=== PATIENT | female | born 1965 | race Hispanic/Latino ===

== ENCOUNTER → 2017-12-01 | Outpatient (CLI) | payer OTHER | LOC: RAD 09:49 | PROVIDERS: ATTEND Internal Medicine | DX: R60.9 Edema, unspecified (principal) | CPT/HCPCS: 93970 ==

== ENCOUNTER 2018-08-05 23:19 | Inpatient (IN) | payer OTHER ==
[~2018-08-05] VITALS: Ht 165.1 cm; Wt 99.8 kg
--- OUTSIDE RECORDS SUMMARY | 2018-08-05 23:24 | XMS REPORT ---
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 Allergies, Adverse Reactions, Alerts This patient has no known allergies or adverse reactions. Medications This patient has no known medications. Results Test Description Test Time Test Comments Text Results Atomic Results Result Comments CHEST 2 VIEWS [place] [address] Patient Name: PADMINI GUTIÉRREZ MR #: [id number] : 1965 Age/Sex: 51/F Req #: [id number] Adm Physician: Ordered by: ELMA PATEL DPM Report #: [id number] Location: OR Room/Bed: Procedure: [id number] DX/CHEST 2 VIEWS Exam Date: 01/19/17 Exam Time: 1300 REPORT STATUS: Signed PROCEDURE: Frontal and lateral views of the chest. COMPARISON: None. INDICATIONS: PRE OPERATIVE CHEST X-RAY FOR FOOT SURGERY FINDINGS: Lines/tubes: None. Lungs: The lungs are well inflated and clear. There is no evidence of pneumonia or pulmonary edema. Pleura: There is no pleural effusion or pneumothorax. Heart and mediastinum: The heart and the mediastinum are normal. Bones: No acute bony abnormality. IMPRESSION: No acute cardiopulmonary disease. Dictated by: Armando Cuenca M.D. on 01/19/2017 at 13:31 Electronically approved by: Armando Cuenca M.D. on 01/19/2017 at 13:31 Dictated By: ARMANDO CUENCA MD [id number] Transcribed By: RITA on 01/19/17 1331 COPY TO: ELMA PATEL DPM
[2018-08-05 23:38] LABS: BASOPHILS # (AUTO) 0.1 (0.0-0.1); BASOPHILS % 0.5 % (0.0-1.0); EOSINOPHILS # (AUTO) 0.1 (0.0-0.4); EOSINOPHILS % 0.8 % (0.0-6.0); HEMATOCRIT 39.2 % (34.2-44.1); LYMPHOCYTES # (AUTO) 2.3 (1.0-3.2); LYMPHOCYTES % 21.9 % (18.0-39.1); MEAN CORPUSCULAR HEMOGLOBIN 30.4 pg (28-32); MEAN CORPUSCULAR HGB CONC 33.2 g/dL (31-35); MEAN CORPUSCULAR VOLUME 91.6 fL (81-99); MONOCYTES # (AUTO) 0.8 (0.2-0.8); NEUTROPHILS % 67.3 % (38.7-80.0); PLATELET COUNT 183 x10e3/uL (140-360); RED BLOOD COUNT 4.28 x10e6/uL (3.6-5.1); RED CELL DISTRIBUTION WIDTH 13.2 % (11.7-14.4)
[2018-08-05 23:43] LABS: INR 0.81; PROTHROMBIN TIME 11.6 seconds (11.9-14.5)
[2018-08-06 00:05] LABS: ALBUMIN 2.9 g/dL (3.5-5.0); ALBUMIN/GLOBULIN RATIO 0.9 (0.8-2.0); ANION GAP 14.9 mmol/L (8-16); CREATININE, SERUM 1.05 mg/dL (0.57-1.11); MAGNESIUM 1.7 MG/DL (1.3-2.1); POTASSIUM 3.9 mmol/L (3.5-5.1)
[2018-08-06 00:11] LABS: CREATINE KINASE MB 1.3 ng/mL (0-5.0)
--- NOTE | 2018-08-06 00:13 | Diagnostic Imaging Report ---
EXAMINATION: PA and lateral views of the chest. COMPARISON: Chest two views 01/19/2017 CLINICAL HISTORY: Chest pain DISCUSSION: Lines/tubes: None. Lungs: The lungs are well inflated and clear. There is no evidence of pneumonia or pulmonary edema. Pleura: There is no pleural effusion or pneumothorax. Heart and mediastinum: Cardiomediastinal silhouette is unremarkable. Pulmonary vasculature is normal. Bones and soft tissues: No acute bony abnormalities. IMPRESSION: No acute cardiopulmonary abnormalities. Signed by: Dr. Magan Freedman M.D. on 08/06/2018 12:09 AM
[2018-08-06] MEDS ORDERED: ONDANSETRON HCL INJ 2MG/ML 2ML 2 MG/ML VIAL IV STA (00:22)
[2018-08-06] MEDS ORDERED: SODIUM CHLORIDE 0.9% 1000ML 1,000 ML IV STA (00:22)
[2018-08-06] MEDS ORDERED: NITROGLYCERIN 2% OINT 1 GM PKT TOP ONE (00:30)
[2018-08-06] MEDS ORDERED: MORPHINE SULFATE INJ 4 MG/ML INJ 1ML IV ONE (00:30)
[2018-08-06 00:39] LABS: CLARITY,URINE CLEAR (CLEAR); COLOR,URINE YELLOW (YELLOW)
[2018-08-06 00:40] LABS: BILIRUBIN,URINE NEGATIVE (NEGATIVE); KETONES,URINE NEGATIVE (NEGATIVE); LEUKOCYTE ESTERASE ,URINE NEGATIVE (NEGATIVE); NITRITE,URINE NEGATIVE (NEGATIVE); PROTEIN,URINE DIPSTICK NEGATIVE (NEGATIVE); URINE UROBILINOGEN 0.2 mg/dL (0.2 - 1)
[2018-08-06 00:44] LABS: PARTIAL THROMBOPLASTIN TIME 20.6 seconds (23.8-35.5)
[2018-08-06] MEDS ORDERED: INSULIN REGULAR, HUMAN 100 UNIT/1 ML 3ML VIAL IV ONE (00:45)
--- NOTE | 2018-08-06 01:03 | Diagnostic Imaging Report ---
CT BRAIN WO HISTORY: Headache COMPARISON: None. TECHNIQUE: Noncontrast axial scans were obtained from skull base to the vertex. Coronal and sagittal reconstructions obtained from the axial data. One or more of the following dose reduction techniques were used: Automated exposure control, adjustment of the mA and/or kV according to patient size, and/or utilization of iterative reconstruction technique. DISCUSSION: Scalp/Skull: Focal area of nonaggressive osseous scalloping at the left sphenoid triangle measures up to 1.4 cm in craniocaudal dimension and contains internal fat density; this may be a lipoma. Brain sulci: Appropriate for patient's age. Ventricles: Normal in size and configuration. No hydrocephalus. Extra-axial spaces: No masses or fluid collections. Carotid siphon calcifications are present. Parenchyma: Mild periventricular white matter hypodensities are likely chronic microvascular ischemic changes. Otherwise, no mass, hemorrhage, or large vascular territory acute infarct. Dural sinuses: No abnormal densities. Sellar/Suprasellar region: Intact. Skull base: Intact. Incidental findings: None. IMPRESSION: 1. No acute intracranial abnormalities. 2. Mild supratentorial chronic microvascular ischemic change. Signed by: Dr. Gabriele Cardenas M.D. on 08/06/2018 12:59 AM
[2018-08-06 01:19] LABS: BACTERIA,URINE MODERATE /HPF; EPITHELIAL CELLS,URINE FEW /LPF; RBC,URINE 0-5 /HPF (0-5); WBC,URINE (MAN) 0-5 /HPF (0-5)
[2018-08-06 01:20] LABS: HYALINE CASTS 0-1 (0-1); YEAST,URINE FEW
[2018-08-06] MEDS ORDERED: CLONIDINE HCL0.2 MG PO (01:25)
[2018-08-06] MEDS ORDERED: GLIMEPIRIDE2 MG PO (01:25)
[2018-08-06] MEDS ORDERED: LISINOPRIL20 MG PO (01:25)
[2018-08-06] MEDS ORDERED: FAMOTIDINE 20 MG/2 ML VIAL IV SCH (01:30)
[2018-08-06] MEDS ORDERED: DEXTROSE 50% SYRINGE 50 ML IV PRN (01:30)
[2018-08-06] MEDS ORDERED: NITROGLYCERIN 0.4 MG SUBL SL PRN (01:30)
[2018-08-06] MEDS ORDERED: SODIUM CHLORIDE 0.9% 1000ML 1,000 ML ONE (04:11)
[2018-08-06] MEDS: SODIUM CHLORIDE 0.9% 1000ML 1,000 ML IV SCH ×3 (04:45→21:00)
[2018-08-06] MEDS: ONDANSETRON HCL INJ 2MG/ML 2ML 2 MG/ML VIAL IV PRN (05:21)
--- NOTE | 2018-08-06 07:21 | History and Physical ---
REASON FOR ADMISSION: 1. Chest pain, rule out DC. 2. Hypertensive urgency. 3. Diabetes. HISTORY OF PRESENT ILLNESS: The patient is a 52-year-old female with history of hypertension, recent diagnosis of diabetes, who presented to the emergency room with her 1st acute onset of chest pain and felt like somebody squeezing her chest and radiated to the left shoulder, was associated with diaphoresis and shortness of breath. She became chest pain-free in the emergency room where she is currently still chest-pain free. She was also noticeable for hypertensive urgency with systolic blood pressure around 220, but currently is now normal. REVIEW OF SYSTEMS: She is also complaining of significant headache, which was also . PAST MEDICAL HISTORY: Diabetes, hypertension. MEDICATIONS: See JUL. ALLERGIES: SEE JUL. SOCIAL HISTORY: Lives at home with her . Nonsmoker, nondrinker. FAMILY HISTORY: Hypertension. PHYSICAL EXAMINATION: VITAL SIGNS: Temperature is 98.6, blood pressure 132/70, pulse 74, sats 98% on room air. GENERAL: She is in no apparent distress, lying in bed. NECK: Supple. No lymphadenopathy. No JVD. CARDIOVASCULAR: Regular rate and rhythm. LUNGS: Clear to auscultation bilaterally. ABDOMEN: Good bowel sounds. Soft, nontender. EXTREMITIES: No clubbing or cyanosis. NEUROLOGIC: Nonfocal. ASSESSMENT/PLAN: 1. Chest pain. We will rule out DC and consult Cardiology, most likely will need a stress test. 2. Hypertensive urgency. This appears to be resolved at the time. She will continue to monitor her blood pressure. 3. Diabetes. Continue the current care and monitoring . 4. Hyponatremia most likely secondary to her hyperosmolar syndrome from her diabetes. We will continue with IV fluids. 5. Hyperosmolar syndrome. We will continue with getting the sugar down. Please see hospital chart for full details. MD MILI Paul/MODL /[id number]
[2018-08-06] MEDS: INSULIN LISPRO 100 UNIT/1 ML 3ML VIAL SQ SCH ×4 (08:10→22:47)
[2018-08-06 08:34] LABS: CREATINE KINASE MB 1.4 ng/mL (0-5.0)
[2018-08-06] MEDS: METOPROLOL TARTRATE 25 MG TAB PO SCH ×2 (09:09→21:00)
[2018-08-06] MEDS: LISINOPRIL 20 MG TAB PO SCH ×2 (09:17→21:00)
[2018-08-06] MEDS: ASPIRIN 81 MG ENTERIC COATED PO SCH (09:17)
[2018-08-06] MEDS: FAMOTIDINE 20 MG/2 ML VIAL IV SCH ×2 (09:17→21:33)
--- NOTE | 2018-08-06 10:30 | NUR ---
Dr. Debbie Oliver rounding at this time. States to keep pt NPO & hold insulin until after stress test.
--- NOTE | 2018-08-06 11:00 | NUR ---
Echo at bedside.
--- NOTE | 2018-08-06 11:11 | NUR ---
Walking rounds with Martinez Decker RN. Denies complaints at this time.
[2018-08-06] MEDS ORDERED: REGADENOSON 0.4 MG/5 ML SYR IV ONE (12:38)
[2018-08-06 16:22] LABS: CREATINE KINASE MB 1.4 ng/mL (0-5.0)
--- NOTE | 2018-08-06 16:27 | NUR ---
Call placed to Dr. Brock's office regarding pt's request to be taken off NPO status.
--- NOTE | 2018-08-06 17:21 | NUR ---
Dr. Brock called back and stated the pt can be removed from NPO status.
[2018-08-06 21:00] VITALS: BP 150/74
[2018-08-06] MEDS ORDERED: ACETAMINOPHEN 325 MG TAB PO PRN (21:00)
--- NOTE | 2018-08-06 23:00 | NUR ---
PT IS TRANSFERRED FROM ER AOX3 .RESPIRATIONS ARE EVEN AND UNLABORED .SKIN WARM AND DRY TO TOUCH .PT DENIES CEST PAIN PT HAS IV AT RT AC 18G .FAMILY AT THE BEDSIDE .PHYSICAL ASSESSMENT DONE .ORIENTED TO THE ENVIRONMENT.CALL LIGHT WITH IN REACH
[2018-08-07] VITALS (8 sets, daily range): BP systolic 127–175; BP diastolic 71–83
[2018-08-07] MEDS: SODIUM CHLORIDE 0.9% 1000ML 1,000 ML IV SCH ×3 (01:45→11:23)
[2018-08-07] MEDS: ONDANSETRON HCL INJ 2MG/ML 2ML 2 MG/ML VIAL IV PRN (02:49)
--- NOTE | 2018-08-07 04:49 | NUR ---
PT C/O HEADACHE .CALLED DR JIANG AND GOT THE ORDER TO GIVE TYLENOL .GIVEN TYLENOL PT SAID THE HEADACHE IS GONE .PT C/O FO IV AND STARTED NEW IV AT RT HAND .CALL LIGHT WITH IN REACH .CONTINUE TO MONITOR
--- NOTE | 2018-08-07 04:52 | NUR ---
PT HAD NAUSEA AND VOMITING .GIVEN ZOFRAN AND CONTINUE TO MONITOR
--- NOTE | 2018-08-07 05:35 | Consultation ---
DATE OF CONSULTATION: 08/06/2018 Cardiology Consult Note REASON FOR CONSULT: Chest pain. HISTORY OF PRESENT ILLNESS: A 52-year-old female with history of hypertension and recent diagnosis of diabetes, presented to the ER with acute onset of chest pain and left shoulder pain associated with diaphoresis and shortness of breath. She was also very hypertensive to 220 systolic on presentation. Overnight, her chest pain has improved significantly, as her blood pressure has improved. REVIEW OF SYSTEMS: As above, otherwise negative. PAST MEDICAL HISTORY: Diabetes and hypertension. OUTPATIENT MEDICATIONS: Please see MAR. SOCIAL HISTORY: Lives at home. Does not smoke, drink, or abuse drugs. FAMILY HISTORY: Hypertension and significant coronary artery disease in all of her siblings as well as mother and father. OBJECTIVE: VITAL SIGNS: Temperature, afebrile, pulse 73, respiratory rate 18, blood pressure 146/85, and saturating 99% on room air. GENERAL: A middle-aged female, in no acute distress. CARDIOVASCULAR: Regular rate and rhythm. No murmurs, rubs, or gallops. LUNGS: Clear to auscultation bilaterally. ABDOMEN: Soft, nontender, and nondistended. NEURO AND PSYCH: Alert and oriented to person, place, and time. Normal affect. INPATIENT MEDICATIONS: Reviewed. LABORATORY DATA: Reviewed. Troponins negative x2. Elevated blood sugars. IMAGING DATA: Reviewed. Chest x-ray is unremarkable. EKG AND TELEMETRY DATA: Reviewed, shows left ventricular hypertrophy. Normal sinus rhythm. ASSESSMENT: 1. Chest pain. 2. Hypertension. 3. Hyperlipidemia. 4. Diabetes. PLAN: Plan for nuclear stress test today. Further recommendations upon testing results. Thank you for this consult. We will continue to follow. MD JOSE LUIS Nelson/DELORISL /[id number]
--- NOTE | 2018-08-07 05:54 | NUR ---
PT RESTING AND DENIES CHEST PAIN AND HEADACHE .FAMILY AT THE BEDSIDE .CONTINUE TO MONITOR
[2018-08-07 06:04] LABS: BASOPHILS % 0.4 % (0.0-1.0); EOSINOPHILS # (AUTO) 0.1 (0.0-0.4); HEMATOCRIT 38.1 % (34.2-44.1); HEMOGLOBIN 12.1 g/dL (12.0-16.0); LYMPHOCYTES % 20.9 % (18.0-39.1); MEAN CORPUSCULAR HEMOGLOBIN 29.6 pg (28-32); MEAN CORPUSCULAR HGB CONC 31.8 g/dL (31-35); MEAN CORPUSCULAR VOLUME 93.2 fL (81-99); MONOCYTES # (AUTO) 0.8 (0.2-0.8); MONOCYTES % 8.3 % (4.4-11.3); NEUTROPHILS # (AUTO) 6.5 (2.1-6.9); PLATELET COUNT 193 x10e3/uL (140-360); RED BLOOD COUNT 4.09 x10e6/uL (3.6-5.1); RED CELL DISTRIBUTION WIDTH 13.6 % (11.7-14.4)
[2018-08-07 06:59] LABS: ALANINE AMINOTRANSFERASE 68 IU/L (0-55); ALBUMIN 2.7 g/dL (3.5-5.0); ALBUMIN/GLOBULIN RATIO 0.9 (0.8-2.0); ALKALINE PHOSPHATASE 76 IU/L (40-150); ANION GAP 11.8 mmol/L (8-16); BLOOD UREA NITROGEN 10 mg/dL (7-26); BUN/CREATININE RATIO 12 (6-25); CALCIUM 8.5 mg/dL (8.4-10.2); CARBON DIOXIDE 22 mmol/L (22-29); CHLORIDE 104 mmol/L (98-107); CREATININE, SERUM 0.81 mg/dL (0.57-1.11); EST GLOMERULAR FILTRATION RATE > 60 ML/MIN (60-); GLUCOSE 299 mg/dL (74-118); POTASSIUM 3.8 mmol/L (3.5-5.1); SODIUM 134 mmol/L (136-145)
--- NOTE | 2018-08-07 07:11 | NUR ---
REPORT GIVEN TO THE ONCOMING NURSE FOR CONTINUING CARE
--- NOTE | 2018-08-07 07:12 | NUR ---
REPORT GIVEN TO THE ONCOMING NURSE FOR CONTINUING CARE
[2018-08-07 08:00] LABS: CHOLESTEROL 245 MD/DL (0-199); HDL CHOLESTEROL 62 MG/DL (40-60); LDL CHOLESTEROL 152 MG/DL (60-130); TRIGLYCERIDES 154 MG/DL (0-149)
[2018-08-07] MEDS: INSULIN LISPRO 100 UNIT/1 ML 3ML VIAL SQ SCH ×2 (08:00→12:00)
[2018-08-07] MEDS: FAMOTIDINE 20 MG/2 ML VIAL IV SCH (08:47)
[2018-08-07] MEDS: ASPIRIN 81 MG ENTERIC COATED PO SCH (08:47)
[2018-08-07] MEDS: METOPROLOL TARTRATE 25 MG TAB PO SCH (08:48)
[2018-08-07] MEDS: LISINOPRIL 20 MG TAB PO SCH (08:48)
[2018-08-07] MEDS ORDERED: BENZONATATE 100 MG CAP PO PRN (11:30)
--- NOTE | 2018-08-07 15:50 | NUR ---
Visit made by the Spiritual Care Department Pastoral Visitor, Iris Christy. PV provided pastoral presence, prayer, hospitality, and supportive listening. Pastoral Visitor informed pt/family of the scope of Chemical Tank Worker Services and availability. JOSE LUIS SIMPSON Trucker Hand Spiritual Care Department O: [phone] Pager: [phone] ([phone] number calling from)
--- NOTE | 2018-08-07 15:52 | NUR ---
Dr. Oliver cleared patient for discharge from cardiology standpoint. Notified Dr. Brock, orders received to discharge patient home.
--- NOTE | 2018-08-07 16:08 | NUR ---
Discharge instructions given to the patient, she verbalized understanding.
--- NOTE | 2018-08-07 16:11 | NUR ---
Patient left the floor via wheelchair
--- NOTE | 2018-08-07 17:42 | NUR ---
CASE MANAGEMENT INITIAL ASSESSMENT Accounting Specialist to bedside to discuss plan of care with patient/family. CM/SW role and care transitions discussed. Anticipated discharge plan discussed along with duration of care. CM/SW discussed patients right to make decisions in care. CM/SW work hours given. Patient lives: Admit/Transfer: ER Hospital/ER visits since last admit:0 POA/Emergency contact: KIRSTIN REDDING [phone] Current/Previous Home Health: NONE PCP/Follow-up Care: DR JIANG Current/Previous DME: NONE Medications (referring to index hospitalization or the first time you were in the hospital) a. Were changes made in your medications when you were in the hospital on [date of index hospitalization]? Yes No Not sure Explain: Note: If no or not sure, please skip to question d b. Did you understand the changes? Yes No Explain: c. Were you able to obtain your new medications right away? Yes No n/a SNF only Explain: d. Were you able to take your medications like the doctor wanted you to? Yes No Explain: e. Did the hospital give you an accurate, easy to understand list of medications when you left? 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 Name and number was also written on the patients whiteboard. Patient verbalized understanding of discussion. CM will follow-up with ongoing discharge and transition of care needs.
--- NOTE | 2018-08-08 15:35 | Discharge Summary ---
DISCHARGE DIAGNOSES: 1. Chest pain, rule out myocardial infarction. 2. Hypertensive urgency, resolved. 3. Diabetes. HISTORY OF PRESENT ILLNESS AND HOSPITAL COURSE: See hospital chart for full details. The patient is a 52-year-old lady, who presented with headache and chest pain where she came in with hypertensive urgency. As the blood pressure improved, so did her symptoms of headache and chest pain resolved. She did rule out for OR and she did have stress test done by Cardiology that was unremarkable. At the time of discharge, she was cleared by Cardiology and her blood pressure remained good, so she will follow up with me in 1 to 2 weeks and continue with her home medications and monitor her blood pressure at home. We will also start dieting, exercising, and decreasing salt intake. Please see hospital chart for full details. MD MILI Paul/TERRI /[id number]
== END 2018-08-07 16:10 | disposition home or self-care (01) | DRG 304 ==
LOC: ER 23:19 → ERHOLD 08-06 01:27 → MED/SURG3 08-06 20:20
PROVIDERS: ADMIT Internal Medicine; ATTEND Internal Medicine
DX: I16.0 Hypertensive urgency (principal); E11.00 Type 2 diabetes mellitus with hyperosmolarity without nonketotic hyperglycemic-hyperosmolar coma (NKHHC); E87.1 Hypo-osmolality and hyponatremia; R07.9 Chest pain, unspecified; Z79.4 Long term (current) use of insulin
CPT/HCPCS: 36415; 70450; 71046; 78452; 80053; 80061; 81001; 82550; 82553; 82948; 83735; 83880; 84484; 85025; 85610; 85730; 93005; 93017; 93306; 99284; A9502; J2270; J2405; J7030

== ENCOUNTER 2020-04-26 01:24 | Emergency (ER) | payer OTHER ==
[~2020-04-26] VITALS: Ht 165.1 cm; Wt 99.8 kg
[~2020-04-26 01:24] MED LIST: CLONIDINE HCL0.2 MG PO; GLIMEPIRIDE2 MG PO; LISINOPRIL20 MG PO
[2020-04-26] MEDS ORDERED: GUAIFENESIN 600MG/DEXTROMETHORPHAN 30MG TABSR PO STA (01:37)
[2020-04-26 02:27] LABS: BASOPHILS % 0.4 % (0.0-1.0); HEMATOCRIT 41.6 % (34.2-44.1); HEMOGLOBIN 13.3 g/dL (12.0-16.0); LYMPHOCYTES # (AUTO) 0.6 (1.0-3.2); LYMPHOCYTES % 6.9 % (18.0-39.1); MEAN CORPUSCULAR HEMOGLOBIN 28.3 pg (28-32); MEAN CORPUSCULAR VOLUME 88.5 fL (81-99); MONOCYTES # (AUTO) 0.2 (0.2-0.8); NEUTROPHILS # (AUTO) 7.2 (2.1-6.9); NEUTROPHILS % 88.8 % (38.7-80.0); PLATELET COUNT 219 x10e3/uL (140-360); RED CELL DISTRIBUTION WIDTH 14.1 % (11.7-14.4)
[2020-04-26 02:41] LABS: ALBUMIN 2.8 g/dL (3.5-5.0); ALBUMIN/GLOBULIN RATIO 0.7 (0.8-2.0); ANION GAP 15.9 mmol/L (8-16); CALCIUM 8.4 mg/dL (8.4-10.2); CREATININE, SERUM 1.29 mg/dL (0.57-1.11); POTASSIUM 4.9 mmol/L (3.5-5.1)
[2020-04-26] MEDS ORDERED: SODIUM CHLORIDE 0.9% 500ML 500 ML IV STA (03:09)
[2020-04-26] MEDS ORDERED: INSULIN REGULAR, HUMAN 100 UNIT/1 ML 3ML VIAL SQ ONE (03:30)
[2020-04-26] MEDS ORDERED: INSULIN REGULAR, HUMAN 100 UNIT/1 ML 3ML VIAL IV ONE (03:30)
[2020-04-26 03:46] LABS: ABG PH 7.45 (7.35-7.45)
[2020-04-26 03:47] LABS: ABG HCO3 22 mmol/L (22-26); ABG PCO2 32 mmHg (35-45); ABG PO2 67 mmHg (80-105); ABG TCO2 23
[2020-04-26] MEDS ORDERED: IOPAMIDOL 370 MG/ML 200 ML INFUS..BTL INJ ONE (04:59)
[2020-04-26] MEDS ORDERED: SODIUM CHLORIDE 0.9% 50ML 50 ML ONE (04:59)
[2020-04-26 07:05] VITALS: BP 107/77
== END 2020-04-26 07:08 | disposition other institution (70) ==
LOC: ER 01:38
DX: U07.1 COVID-19 (principal); R09.02 Hypoxemia; E11.65 Type 2 diabetes mellitus with hyperglycemia; I10 Essential (primary) hypertension
CPT/HCPCS: 36415; 71045; 71260; 80053; 82805; 82948; 83605; 85025; 85379; 93005; 99284; J1817; J7040; Q9967; U0002